=== PATIENT | female | born 1960 | race Caucasian/White ===

== ENCOUNTER 2017-04-13 11:48 | Emergency (ER) | payer MEDICARE, OTHER ==
[2017-04-13] MEDS: IPRATROPIUM/ALBUTEROL 3 ML NEB INH STA ×2 (11:50→12:15)
[2017-04-13] MEDS ORDERED: IPRATROPIUM/ALBUTEROL 3 ML NEB INH ONE ×2 (11:57→12:12)
--- NOTE | 2017-04-13 12:35 | ED Physician Documentation ---
PD HPI DYSPNEA - Stated complaint Stated Complaint: SOA - Chief complaint Chief Complaint: Resp - History obtained from History obtained from: Patient Results - Vitals Vitals: Vital Signs - 24 hr 04/13/17 04/13/17 04/13/17 11:50 11:58 12:00 Temperature 36.2 C L Heart Rate 81 76 Respiratory 24 24 Rate Blood Pressure O2 Saturation 98 98 04/13/17 12:10 Temperature Heart Rate 84 Respiratory 20 Rate Blood Pressure 135/86 H O2 Saturation 100 Oxygen O2 Source Room air
[2017-04-13] MEDS ORDERED: DEXAMETHASONE 10 MG/ML VIAL PO STA (12:49)
[2017-04-13] MEDS ORDERED: IPRATROPIUM/ALBUTEROL 3 ML NEB INH STA (12:49)
[2017-04-13] MEDS ORDERED: guaiFENesin/CODEINE 5 ML UDC PO STA (12:49)
[2017-04-13] MEDS ORDERED: guaiFENesin/CODEINE 5 ML UDC ONE (12:54)
[2017-04-13] MEDS ORDERED: DEXAMETHASONE 10 MG/ML VIAL ONE (12:55)
[2017-04-13] MEDS ORDERED: ALBUTEROL NEB 2.5 MG/3 ML INH STA (13:10)
[2017-04-13] MEDS ORDERED: ALBUTEROL NEB 2.5 MG/3 ML INH ONE (13:18)
--- NOTE | 2017-04-13 13:18 | XRAY Preliminary Report ---
Exam: XR Chest 2 View PA/LAT IMPRESSION: Negative chest. [facility] SITE ID: [id number]
[2017-04-13 13:21] VITALS: BP 107/69
--- NOTE | 2017-04-13 13:21 | XRAY Report ---
EXAM: CHEST RADIOGRAPHY EXAM DATE: 04/13/2017 01:08 PM. CLINICAL HISTORY: Cough and wheezing. COMPARISON: None. TECHNIQUE: 2 views. FINDINGS: Lungs/Pleura: No focal opacities evident. No pleural effusion. No pneumothorax. Normal volumes. Mediastinum: Heart and mediastinal contours are unremarkable. Other: None. IMPRESSION: Negative chest. [facility] Referring Provider Line: [phone] SITE ID: [id number]
--- NOTE | 2017-04-13 13:36 | ED Physician Documentation ---
PD HPI DYSPNEA - Stated complaint Stated Complaint: SOA - Chief complaint Chief Complaint: Resp - History obtained from History obtained from: Patient - History of Present Illness Timing - onset: How many days ago (coouple) Timing - onset during: Light activity (she is visiting from [facility] and was also around campfire smoke, so is feeling flare up of her asthma.) Timing - details: Gradual onset, Still present Inciting event(s): Exposure (ie smoke). No: Out of meds, URI Improved by: Inhaler/neb Associated symptoms: Cough, Wheezing. No: Fever, Palpitations, Bilateral edema Similar symptoms before: Diagnosis (asthma) Recently seen: Not recently seen Review of Systems Constitutional: denies: Fever, Chills Nose: denies: Rhinorrhea / runny nose, Congestion Throat: denies: Sore throat Cardiac: denies: Chest pain / pressure Respiratory: reports: Dyspnea, Cough, Wheezing GI: denies: Vomiting, Diarrhea Skin: denies: Rash PD PAST MEDICAL HISTORY - Past Medical History Past Medical History: Yes Cardiovascular: None Respiratory: Asthma Neuro: Headache/migraine Endocrine/Autoimmune: None GI: GERD, Other [employer]: None : Other HEENT: None Psych: Depression, Bipolar disorder Musculoskeletal: Chronic back pain, Other Derm: None Other Past Medical History: ibs, bladder reconstruction - Past Surgical History Past Surgical History: Yes General: Cholecystectomy, Appendectomy, Colonoscopy, Other Ortho: Knee replacement /[employer]: Hysterectomy HEENT: Tonsil/Adenoidectomy - Present Medications Home Medications: Ambulatory Orders Medication Instructions Recorded Confirmed Albuterol 2.5 mg INH Q4H PRN #30 neb 04/13/17 Dexamethasone [Decadron] 4 mg PO DAILY #5 tablet 04/13/17 guaiFENesin/CODEINE [Robitussin AC] 10 ml PO Q6H PRN #240 ml 04/13/17 - Allergies Allergies/Adverse Reactions: Allergies Allergy/AdvReac Type Severity Reaction Status Date / Time levofloxacin [From Levaquin] Allergy Emesis Verified 04/13/17 13:07 - Social History Does the pt smoke?: Yes Smoking Status: Current every day smoker Does the pt drink ETOH?: No Does the pt have substance abuse?: No PD ED PE NORMAL - Vitals Vital signs reviewed: Yes - General General: Alert and oriented X 3, No acute distress, Well developed/nourished - HEENT HEENT: Ears normal, Moist mucous membranes, Pharynx benign - Neck Neck: Supple, no meningeal sign, No adenopathy - Cardiac Cardiac: RRR, No murmur - Respiratory Respiratory: Other (no coarse sounds; scattered wheezes and repetitive cough. ) - Abdomen Abdomen: Soft, Non tender - Derm Derm: Normal color, Warm and dry - Extremities Extremities: No edema, No calf tenderness / cord - Neuro Neuro: Alert and oriented X 3, No motor deficit, Normal speech Results - Vitals Vitals: Vital Signs - 24 hr 04/13/17 04/13/17 04/13/17 11:50 11:58 12:00 Temperature 36.2 C L Heart Rate 81 76 Respiratory 24 24 Rate Blood Pressure O2 Saturation 98 98 04/13/17 04/13/17 04/13/17 12:10 12:20 13:21 Temperature Heart Rate 84 86 88 Respiratory 20 22 18 Rate Blood Pressure 135/86 H 107/69 O2 Saturation 100 98 04/13/17 04/13/17 13:22 13:41 Temperature Heart Rate 86 78 Respiratory 22 18 Rate Blood Pressure O2 Saturation 99 Oxygen O2 Source Room air - Rads (name of study) chest Radiology: Prelim report reviewed (clear) PD MEDICAL DECISION MAKING - ED course Complexity details: reviewed results, considered differential, d/w patient Departure - Departure Disposition: 01 Home, Self Care Clinical Impression: Asthma Qualifiers: Asthma severity: mild intermittent Asthma complication type: with acute exacerbation Qualified Code(s): J45.21 - Mild intermittent asthma with (acute) exacerbation Condition: Stable Record reviewed to determine appropriate education?: Yes Instructions: ED Bronchitis Asthmatic Prescriptions: Albuterol 2.5 mg INH Q4H PRN #30 neb PRN Reason: Wheezing Dexamethasone [Decadron] 4 mg PO DAILY #5 tablet guaiFENesin/CODEINE [Robitussin AC] 10 ml PO Q6H PRN #240 ml PRN Reason: Cough Comments: Use your nebulizer 3-4 times daily and add extra as needed. Decadron steroid for 5 more days. COugh medication if needed. Recheck if not improving over the next 1-2days. Discharge Date/Time: 04/13/17 13:42
== END 2017-04-13 13:42 | disposition home or self-care (01) ==
LOC: ED 11:48
DX: J45.21 Mild intermittent asthma with (acute) exacerbation (principal); K21.9 Gastro-esophageal reflux disease without esophagitis; F17.200 Nicotine dependence, unspecified, uncomplicated
CPT/HCPCS: 71020; 94150; 94640; 94664; 99283; A9270; J7613; J7620